=== PATIENT | female | born 1930 | race Caucasian/White ===

== ENCOUNTER → 2016-06-18 | Outpatient (CLI) | payer OTHER, BC ==
[~2016-06-18] MED LIST: ASCA500 PO; ASPEC81 PO; DVN80 PO; EVS60 PO; MULT-506 PO; Synthroid PO; VITA400C15 PO; VITAMIN D PO; [UNRECOGNIZED DRUG - OTHER]
[2016-06-18 15:15] LABS: HEMATOCRIT 41.7 % (37-47); MEAN CELL VOLUME 90.3 fL (80-100); MEAN CORPUSCULAR HEMOGLOBIN 30.1 pg (25-34); MEAN CORPUSCULAR HGB CONC 33.3 g/dl (32-36); MEAN PLATELET VOLUME 12.3 fL (7.4-10.4); PLATELET COUNT 324 K/uL (130-400); RED BLOOD COUNT 4.62 M/uL (4.2-5.4); WHITE BLOOD COUNT 23.42 K/uL (4.8-10.8)
[2016-06-18 15:48] LABS: BLOOD UREA NITROGEN 23 mg/dl (7-18); CALCIUM 8.9 mg/dl (8.5-10.1); CARBON DIOXIDE 28 mmol/L (21-32); CHLORIDE 104 mmol/L (98-107); GLUCOSE 86 mg/dl (70-99); POTASSIUM 4.5 mmol/L (3.5-5.1); SODIUM 140 mmol/L (136-145)
[2016-06-18 15:56] LABS: BASO % 0.2 %; BASO ABS # 0.05 K/uL (0-0.2); COMPLETE YES; EOS % 0.6 %; IG% 0.3 %; LYMPH % 69.7 %; LYMPH ABS # 16.33 K/uL (1.2-3.4); MONO % 5.4 %; NEUT % 23.8 %; SMUDGE CELLS PRESENT
== END | disposition home or self-care (01) ==
LOC: C.LAB1850 14:22
PROVIDERS: ATTEND Family Medicine
DX: I10 Essential (primary) hypertension (principal); C91.10 Chronic lymphocytic leukemia of B-cell type not having achieved remission; E03.9 Hypothyroidism, unspecified; M81.0 Age-related osteoporosis without current pathological fracture; E78.5 Hyperlipidemia, unspecified

== ENCOUNTER → 2016-12-24 | Outpatient (CLI) | payer OTHER, BC ==
--- NOTE | 2016-12-24 11:31 | DIAGNOSTIC IMAGING REPORT ---
LEFT KNEE 1 OR 2 VIEWS ROUTINE CLINICAL HISTORY: Left knee pain. COMPARISON: None FINDINGS: Alignment of the left knee is anatomic. There is no fracture or joint effusion. There is extensive chondrocalcinosis within the menisci. There is mild osteophytosis of the medial and lateral compartment with preserved joint spaces. There is suspected joint space narrowing of the patellofemoral compartment which is suboptimally assessed on this exam. There is extensive vascular calcification. IMPRESSION: 1. No acute fracture or joint effusion of the left knee. 2. Extensive chondrocalcinosis within the menisci. 3. Suspected patellofemoral compartment joint space narrowing. Electronically signed by: Escobar Thomas M.D. 12/24/2016 11:29 AM Dictated Date/Time: 12/24/2016 11:28 AM
== END | disposition home or self-care (01) ==
LOC: C.LAB 10:46
PROVIDERS: ATTEND Internal Medicine Hematology & Oncology
DX: M25.562 Pain in left knee (principal); M11.262 Other chondrocalcinosis, left knee

== ENCOUNTER → 2017-01-29 | Outpatient (CLI) | payer OTHER, BC ==
[2017-01-29 17:11] LABS: BLOOD UREA NITROGEN 23 mg/dl (7-18); BUN/CREATININE RATIO 28.9 (10-20); CARBON DIOXIDE 30 mmol/L (21-32); CHLORIDE 105 mmol/L (98-107); CREATININE 0.81 mg/dl (0.60-1.20); GLUCOSE 98 mg/dl (70-99); POTASSIUM 4.1 mmol/L (3.5-5.1); SODIUM 139 mmol/L (136-145)
== END | disposition home or self-care (01) ==
LOC: C.LABBC 13:43
PROVIDERS: ATTEND Physician Assistant Medical
DX: I10 Essential (primary) hypertension (principal); E03.9 Hypothyroidism, unspecified

== ENCOUNTER 2017-05-12 14:43 | Emergency (ER) | payer OTHER, BC ==
[~2017-05-12] VITALS: Ht 157.5 cm; Wt 64.0 kg
[2017-05-12 15:08] VITALS: TEMP 36.5; Ht 157.5 cm; Wt 64.0 kg
[2017-05-12] MEDS ORDERED: LIDOCAINE/EPINEPH/TETRACAINE 1 EA SYR EXT STA (15:22)
--- NOTE | 2017-05-12 15:51 | DIAGNOSTIC IMAGING REPORT ---
HEAD WITHOUT CONTRAST (CT) CLINICAL HISTORY: 86 years-old Female presenting with fall, hit head, LAC, on ASA, eval ICH, skull fracture. TECHNIQUE: Multidetector CT imaging of the head was performed without the use of intravenous contrast. IV contrast: None. A dose lowering technique was used consistent with the principles of ALARA (as low as reasonably achievable). COMPARISON: None. CT DOSE (mGy.cm): The estimated cumulative dose is 948.18 mGy.cm. 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 Ventricles and sulci normal in size. Brain parenchyma normal in appearance with preserved regalado-white differentiation. No mass effect or midline shift. No hemorrhage or acute territorial infarct. No extra-axial fluid collection. Paranasal sinuses and mastoid air cells clear. Calvarium intact. Bilateral cocopah lenses are absent. Minimal irregularity of the subcutaneous tissue and overlying cutis of the right parietal region near the vertex. IMPRESSION: 1. No acute intracranial abnormality. 2. Subcutaneous contusion and possible laceration at the right parietal vertex. No underlying osseous injury. Electronically signed by: Juan Faria M.D. 05/12/2017 3:50 PM Dictated Date/Time: 05/12/2017 3:48 PM
--- NOTE | 2017-05-12 15:55 | DIAGNOSTIC IMAGING REPORT ---
CT OF THE CERVICAL SPINE WITHOUT CONTRAST CLINICAL HISTORY: Fall. COMPARISON STUDY: No previous studies for comparison. TECHNIQUE: Helical axial images of the cervical spine were obtained without IV contrast. Sagittal and coronal reconstructions were viewed. A dose lowering technique was utilized adhering to the principles of ALARA. FINDINGS: Craniocervical junction is intact. No acute cervical spine fracture is identified. There is severe multilevel facet arthrosis and moderate multilevel degenerative disc disease. 3 mm of anterolisthesis of T1 on T2 is likely due to facet arthrosis. There is no paravertebral edema. IMPRESSION: No acute cervical spine fracture or subluxation. Electronically signed by: Escobar Thomas M.D. 05/12/2017 3:54 PM Dictated Date/Time: 05/12/2017 3:51 PM
--- NOTE | 2017-05-12 15:58 | EMERGENCY ROOM VISIT NOTE ---
ED Visit Note First contact with patient: 15:16 Chief Complaint: Scalp Laceration History of Present Illness: This patient is a 86-year-old female who presents to the Emergency Department by private vehicle for evaluation of their scalp laceration. Patient sustained the laceration from a fall, she states she had climbed up on a chair and lost her balance falling backwards and hit the back of her head on a tile floor. They report a large amount of bleeding initially. They report no loss of consciousness. They deny any headache, visual disturbance , nausea, vomiting, or neck pain. They have tried no medications at the injury. Patient rates her scalp laceration current discomfort as a 0/10. Patient denies any other injuries. Patient's Tetanus status is currently up-to-date. She takes baby aspirin daily, denies any other blood thinners. Medications: Reviewed in chart Allergies: Reviewed in chart PMH: Hypertension SHx: She lives at home alone in an apartment. She denies tobacco use, occasional alcohol use. ROS: All pertinent positive and negative review of systems are appropriately documented in the History of Present Illness. Physical Exam: VITAL SIGNS - Vital signs and nursing notes were reviewed. GENERAL - Pleasant and cooperative, no distress. Communicates well with provider and answers questions appropriately. SKIN - There is a 4 cm irregular and jagged laceration noted on the posterior right scalp. The edges gape apart with traction. There is surrounding contused tissue and mild active bleeding appreciated. There are no deep structures including vessels, musculature, or bony structures are appreciated. The periosteum is intact. HEAD - Normocephalic. No Torres's Sign or Raccoon's Eyes. No depressed skull fractures palpable. EYES - PERRL with EOMI bilaterally. Without subconjunctival hemorrhage. Palpebral conjunctiva pink and moist with no injection. EARS - No deformities of external structures noted on gross examination bilaterally. No hemotympanum present. No tympanic perforation noted. NOSE -Midline and without cyanosis. No epistaxis or clear watery discharge noted. Septum midline without deviation. No septal hematoma noted. No overlying ecchymosis noted. MOUTH/OROPHARYNX - Without perioral cyanosis. Tongue midline with equal elevation of palate bilaterally. No blood noted in the oropharynx. No tonsillar hypertrophy, erythema, or exudates noted. NECK -FROM assessed. No nuchal rigidity. No tenderness to palpation over the cervical spinous processes. No cervical paraspinal muscle tenderness noted. LUNGS - Chest wall symmetric without accessory muscle use, intercostals retractions, or central cyanosis. Normal vesicular breath sounds CTA B/L. No wheezes, rales, or rhonchi appreciated. CARDIAC - RRR with S1/S2. No murmur, rubs, or gallops appreciated. ABDOMEN - Abdominal contour normal without pulsations or visible masses. BS normoactive all four quadrants. EXTREMITIES -No gross deformities noted of the extremities. + 2 radial and dorsalis pedis pulses palpated throughout. FROM with no tremors, fasciculations , or clonus noted on PROM throughout. +5/5 strength noted in UE/LE bilaterally. NEUROLOGIC - Cranial nerves II through XII grossly intact. Sensory intact to light touch throughout. Patient able to perform rapid alternating movements appropriately. Normal speech. Normal gait observed. Negative Romberg and Pronator Drift. PSYCH - Alert and oriented x4, cooperates fully with examiner. Pt is very pleasant and interacts well with examiner. Imaging: HEAD WITHOUT CONTRAST (CT) CLINICAL HISTORY: 86 years-old Female presenting with fall, hit head, LAC, on ASA, eval ICH, skull fracture. TECHNIQUE: Multidetector CT imaging of the head was performed without the use of intravenous contrast. IV contrast: None. A dose lowering technique was used consistent with the principles of ALARA (as low as reasonably achievable). COMPARISON: None. CT DOSE (mGy.cm): The estimated cumulative dose is 948.18 mGy.cm. FINDINGS: Chemical Operator topogram: Unremarkable. Ventricles and sulci normal in size. Brain parenchyma normal in appearance with preserved regalado-white differentiation. No mass effect or midline shift. No hemorrhage or acute territorial infarct. No extra-axial fluid collection. Paranasal sinuses and mastoid air cells clear. Calvarium intact. Bilateral umatilla tribe lenses are absent. Minimal irregularity of the subcutaneous tissue and overlying cutis of the right parietal region near the vertex. IMPRESSION: 1. No acute intracranial abnormality. 2. Subcutaneous contusion and possible laceration at the right parietal vertex. No underlying osseous injury. ----- CT OF THE CERVICAL SPINE WITHOUT CONTRAST CLINICAL HISTORY: Fall. COMPARISON STUDY: No previous studies for comparison. TECHNIQUE: Helical axial images of the cervical spine were obtained without IV contrast. Sagittal and coronal reconstructions were viewed. A dose lowering technique was utilized adhering to the principles of ALARA. FINDINGS: Craniocervical junction is intact. No acute cervical spine fracture is identified. There is severe multilevel facet arthrosis and moderate multilevel degenerative disc disease. 3 mm of anterolisthesis of T1 on T2 is likely due to facet arthrosis. There is no paravertebral edema. IMPRESSION: No acute cervical spine fracture or subluxation. ED Course: Patient was seen and evaluated by myself. Differential diagnosis includes scalp contusion, laceration, open skull fracture, ICH, concussion, cervical spine fracture/subluxation, among others. Patient had no focal neurological deficits. Patient's exam is otherwise unremarkable. Patient reports no headaches , visual disturbances, nausea, vomiting, or over-lethargy. She is on aspirin daily, no other blood thinners. CT of head and C-spine ordered to evaluate for traumatic injuries. CT shows no acute abnormalities of the head or C-spine. Costs and benefits of performing primary wound closure versus no repair were discussed with the patient who verbalizes understanding. Verbal consent was obtained prior to performing the procedure. LET gel was used to anesthetize the 4 cm laceration. The wound was cleansed and prepped in the typical sterile fashion utilizing normal saline and Betadine. The wound was sterilely draped. Once proper anesthetization was established, the wound was further examined and demonstrated no changes from above exam. The wound was copiously irrigated with normal saline and Betadine. Approximately 1 cm of the wound was debrided for better wound closure. The wound was closed using 12 susi with the wound edges being well approximated. Patient tolerated the procedure well. No complications were met. The wound was cleansed and dressed with a Bacitracin dressing. Patient educated on worrisome symptoms for return visit to the Emergency Department. Patient discharged to home in good condition. Medication Reconciliation: I attest that I have personally reviewed the patient' s current medication list. Blood pressure screening: The patient was found to have an elevated blood pressure and was referred to their primary doctor for recheck and further treatment. The patient was discussed with Dr. Casillas, who also independently evaluated the patient and agrees with my assessment and plan. Current/Historical Medications Scheduled Ascorbic Acid (Ascorbic Acid), 500 MG PO DAILY Aspirin Enteric Coated (Ecotrin Or Generic), 81 MG PO DAILY Cholecalciferol (Vitamin D3), Unknown Dose PO DAILY Lactobacillus (Probiotic), 1 CAP PO DAILY Levothyroxine Sodium (Synthroid), 50 MCG PO DAILY Multivitamin (Multivitamin), 1 TAB PO DAILY Raloxifene (Evista), 60 MG PO DAILY Tocopheryl Acet,Dl-Alpha (Vitamin E/Dl-Alpha), 400 UNITS PO DAILY Valsartan (Valsartan), 80 MG PO DAILY Allergies Coded Allergies: No Known Allergies (Unverified , 05/12/17) Vital Signs Date Time Temp Pulse Resp B/P (MAP) Pulse Ox O2 Delivery O2 Flow Rate FiO2 05/12/17 16:35 90 18 180/88 97 Room Air 05/12/17 15:08 36.5 95 18 191/101 94 Room Air Medications Administered Medications (Trade) Dose Ordered Sig/Barby Route Start Time Stop Time Status Last Admin Dose Admin Tetracaine/ Epinephrine/ Lidocaine (L.e.t. Gel 4%/ 1:100/0.5%) 1 ea UD STAT EXT 05/12/17 15:22 05/12/17 15:24 DC 05/12/17 15:22 1 EA Departure Information Impression Primary Impression: Head injury, acute Additional Impression: Occipital scalp laceration Dispostion Home / Self-Care Condition GOOD Referrals Juan Jefferson M.D. (PCP) Patient Instructions ED Head Injury Closed, ED Laceration Scal[facility] Additional Instructions You most likely have a mild concussion. It is important to observe both physical and cognitive rest while recovering from a concussion. Physical rest includes no significant physical activity or exertion, heavy lifting over 10 pounds, and increasing sleep and nap times throughout the day as needed. Cognitive rest includes taking breaks from prolonged screen time including TV, tablets, phone, or prolonged periods of talking on the telephone or reading. You should relax in a quiet, dark place for the rest of the day. Avoid any possible triggers including: cigarette smoke, caffeine, nicotine, chocolate, wine, beer, loud noises or music, or bright lights. You have received 12 susi on your scalp. These susi are NOT dissolvable and WILL need to be removed by a health care provider in 10 days. You can return to the Emergency Department or contact your Primary Care Provider to have these susi removed. If you prefer to return to the emergency department, you may come on Sunday 05/21 , Monday 05/22, or Tuesday 05/23 between 1 PM and 10 PM and ask for Conchis Rader, nurse practitioner. Proper wound care is essential for adequate wound healing and infection prevention. You can shower and clean the wound with soap and water. Do NOT scour over the wound, pat dry with a towel. Do not submerse the wound until the susi have been removed. You can use an antibiotic ointment with a dressing over the wound for the next 3-4 days. After this time you may leave the wound dry and open to the air. If crust develops over the wound you can use a Q-tip to apply a 1:1 peroxide:water solution to clean the wound. Look for signs of infection of the wound including: increased pain, swelling, foul discharge, streaking, or increased temperature. If any of these are noticed you should return to the Emergency Department for further assessment and treatment. As with any laceration you may have received nerve damage to the surrounding tissues. This damage may or may not be permanent. For pain control, you can use the following [id number] medicines (if >12 yo): - Regular strength (325mg/tab) Tylenol (acetaminophen) 2 tabs every 4-6 hours as needed. Do not exceed 10 tablets in a 24 hour period. Avoid taking more than 3000 mg of Tylenol per day. This includes any other sources of acetaminophen you may take on a regular basis. - Regular strength (200 mg/tab) Advil (ibuprofen) 2 tabs every 4-6 hours as needed. Do not exceed a dose of 2400 mg per day. Follow-up with your PCP in the next few days to be rechecked. Please return to the ER for any worsening symptoms, including severe worsening headache, persistent vomiting, vision changes, confusion, numbness or weakness on one side of the body, balance issues or difficulty walking, or any other concerns. Problem Qualifiers Primary Impression: Head injury, acute Encounter type: initial encounter Qualified Codes: S09.90XA - Unspecified injury of head, initial encounter Additional Impression: Occipital scalp laceration Encounter type: initial encounter Qualified Codes: S01.01XA - Laceration without foreign body of scalp, initial encounter
[2017-05-12] MEDS ORDERED: ASPI81TA21 PO (16:03)
[2017-05-12] MEDS ORDERED: ASCO500T16 PO (16:03)
[2017-05-12] MEDS ORDERED: VTME400 PO (16:03)
[2017-05-12] MEDS ORDERED: LACT1CAP6 PO (16:03)
[2017-05-12] MEDS ORDERED: RALO60TA31 PO (16:03)
[2017-05-12] MEDS ORDERED: VALS-57 PO (16:03)
[2017-05-12] MEDS ORDERED: VTMD1000 PO (16:03)
[2017-05-12] MEDS ORDERED: LEVO50TA PO (16:03)
[2017-05-12 16:35] VITALS: BP 180/88; PULSE 90; O2SAT 97
--- NOTE | 2017-05-12 23:53 | EMERGENCY ROOM VISIT NOTE ---
ED Visit Note First contact with patient: 15:16 I have personally seen and evaluated the patient with the PA. I agree with the diagnosis and management decisions and have been personally involved in the case. Please see BHARGAV Stanley's notes for further details of the history, physical and visit.
== END 2017-05-12 16:53 | disposition home or self-care (01) ==
LOC: C.EDB 14:44 → C.EDD 16:53
DX: S09.90XA Unspecified injury of head, initial encounter (principal); S01.01XA Laceration without foreign body of scalp, initial encounter; I10 Essential (primary) hypertension; Z79.82 Long term (current) use of aspirin; Z79.899 Other long term (current) drug therapy; W07.XXXA Fall from chair, initial encounter

== ENCOUNTER 2017-05-21 13:30 | Emergency (ER) | payer OTHER, BC ==
[~2017-05-21] VITALS: Ht 157.5 cm; Wt 64.4 kg
[~2017-05-21 13:30] MED LIST changes: -ASCA500 PO; +ASCO500T16 PO; -ASPEC81 PO; +ASPI81TA21 PO; -DVN80 PO; -EVS60 PO; +LACT1CAP6 PO; +LEVO50TA PO; +RALO60TA31 PO; -Synthroid PO; +VALS-57 PO; -VITA400C15 PO; -VITAMIN D PO; +VTMD1000 PO; +VTME400 PO; -[UNRECOGNIZED DRUG - OTHER]
[2017-05-21 13:46] VITALS: BP 173/98; PULSE 77; TEMP 36.3; O2SAT 95; Ht 157.5 cm; Wt 64.4 kg
--- NOTE | 2017-05-21 13:54 | EMERGENCY ROOM VISIT NOTE ---
ED Visit Note First contact with patient: 13:49 CHIEF COMPLAINT: Staple removal This patient returns to the ED today for removal of susi that were placed 9 days ago. There has been no swelling, redness, or drainage from the wound. The patient feels like the laceration is healing well. REVIEW OF SYSTEMS: Head: No headache, injury or neck pain. Skin: No rash, new lesions, or masses. General: No fever or chills, fatigue, loss of appetite , or significant recent weight gain or loss. PMH: Electronic medical records are reviewed and summarized as above/below. See Problem List. SOCIAL HISTORY: Patient lives at home. PHYSICAL EXAM: Vital Signs: Reviewed Nurse's notes. There is a stapled wound on the right occipital scalp with no signs of infection. There is no erythema, swelling, or tenderness. EMERGENCY DEPARTMENT COURSE: The susi were removed without any difficulty and there was no separation of the wound edges. DIAGNOSIS: Healing laceration and staple removal DISCHARGE INSTRUCTIONS AND TREATMENT: Wash any remaining crusts off of the wound today and resume your normal activities. Current/Historical Medications Scheduled Ascorbic Acid (Ascorbic Acid), 500 MG PO DAILY Aspirin Enteric Coated (Ecotrin Or Generic), 81 MG PO DAILY Cholecalciferol (Vitamin D3), Unknown Dose PO DAILY Lactobacillus (Probiotic), 1 CAP PO DAILY Levothyroxine Sodium (Synthroid), 50 MCG PO DAILY Multivitamin (Multivitamin), 1 TAB PO DAILY Raloxifene (Evista), 60 MG PO DAILY Tocopheryl Acet,Dl-Alpha (Vitamin E/Dl-Alpha), 400 UNITS PO DAILY Valsartan (Valsartan), 80 MG PO DAILY Allergies Coded Allergies: No Known Allergies (Unverified , 05/12/17) Vital Signs Date Time Temp Pulse Resp B/P (MAP) Pulse Ox O2 Delivery O2 Flow Rate FiO2 05/21/17 13:46 36.3 77 18 173/98 95 Room Air Departure Information Impression Primary Impression: Encounter for removal of susi Referrals Juan Jefferson M.D. (PCP) Patient Instructions My [facility] [address]
== END 2017-05-21 14:11 | disposition home or self-care (01) ==
LOC: C.EDB 13:32 → C.EDD 14:11
DX: S01.01XD Laceration without foreign body of scalp, subsequent encounter (principal); X58.XXXD Exposure to other specified factors, subsequent encounter; Z79.82 Long term (current) use of aspirin

== ENCOUNTER → 2017-06-15 | Outpatient (CLI) | payer OTHER, BC ==
[2017-06-15 13:17] LABS: HEMATOCRIT 42.1 % (37-47); HEMOGLOBIN 13.9 g/dL (12.0-16.0); MEAN CELL VOLUME 91.9 fL (80-100); MEAN CORPUSCULAR HEMOGLOBIN 30.3 pg (25-34); PLATELET COUNT 326 K/uL (130-400); RED CELL DISTRIBUTION WIDTH SD 50.2 fL (36.4-46.3); WHITE BLOOD COUNT 24.31 K/uL (4.8-10.8)
[2017-06-15 13:38] LABS: ALBUMIN 3.8 gm/dl (3.4-5.0); ALT/SGPT 26 U/L (12-78); AST/SGOT 19 U/L (15-37); BLOOD UREA NITROGEN 22 mg/dl (7-18); CARBON DIOXIDE 27 mmol/L (21-32); GLUCOSE 79 mg/dl (70-99); POTASSIUM 4.5 mmol/L (3.5-5.1); SODIUM 137 mmol/L (136-145)
[2017-06-15 13:40] LABS: ALKALINE PHOSPHATASE 73 U/L (45-117); TOTAL PROTEIN 7.3 gm/dl (6.4-8.2)
[2017-06-15 14:35] LABS: BASO % 0.3 %; BASO ABS # 0.08 K/uL (0-0.2); EOS % 1.1 %; EOS ABS # 0.27 K/uL (0-0.5); IG# 0.06 K/uL (0.00-0.02); LYMPH ABS # 17.74 K/uL (1.2-3.4); MONO % 5.8 %; MONO ABS # 1.42 K/uL (0.11-0.59); NEUT % 19.6 %; NEUT ABS # 4.74 K/uL (1.4-6.5)
== END | disposition home or self-care (01) ==
LOC: C.LAB1850 11:28
PROVIDERS: ATTEND Internal Medicine Hematology & Oncology
DX: C91.10 Chronic lymphocytic leukemia of B-cell type not having achieved remission (principal)